=== PATIENT | male | born 1950 | race Caucasian/White ===

== ENCOUNTER 2021-12-12 01:17 | Observation (INO) | payer MEDICARE, OTHER ==
[2021-12-12] MEDS ORDERED: Dexamethasone 4 MG/ML 5 ML MDV IVPUSH ONE (01:18)
[2021-12-12] MEDS ORDERED: Succinylcholine 200 MG/10 ML MDV IV ONE (01:18)
[2021-12-12] MEDS ORDERED: Midazolam 1 MG/ML 2 ML SDV IV ONE (01:18)
[2021-12-12] MEDS ORDERED: Rocuronium 100 MG/10 ML MDV IV ONE (01:18)
[2021-12-12] MEDS ORDERED: Lactated Ringers 1,000 ML IV ONE ×2 (01:18→11:40)
[2021-12-12] MEDS ORDERED: Propofol 200 MG/20 ML SDV IV ONE (01:18)
[2021-12-12] MEDS ORDERED: Ondansetron 4 MG/2 ML SDV IVPUSH ONE ×2 (01:18→01:30)
[2021-12-12] MEDS ORDERED: fentaNYL 100 MCG/2 ML SDV IV ONE (01:18)
[2021-12-12] MEDS ORDERED: Neostigmine Methylsulfate 10 MG/10 ML MDV IVPUSH ONE (01:18)
[2021-12-12] MEDS ORDERED: Glycopyrrolate 0.2 MG/ML 5 ML MDV IV ONE (01:18)
[2021-12-12] MEDS ORDERED: diphenhydrAMINE 50 MG/ML SDV IVPUSH ONE (01:18)
[2021-12-12] MEDS ORDERED: Ketorolac 30 MG/ML SDV IVPUSH ONE (01:30)
[2021-12-12] MEDS ORDERED: Sodium Chloride 0.9% 10 ML Syringe FLUSH PRN (01:34)
[2021-12-12 01:51] LABS: ESTIMATED GFR 81 mL/min (>60)
[2021-12-12] MEDS ORDERED: Iopamidol 755 Mg/ML 100 ML Bottle IV ONE (01:52)
[2021-12-12] MEDS ORDERED: Piperacillin/Tazobactam 4.5 GM in Sodium Chloride 0.9% 100 ML IV ONE (05:00)
[2021-12-12 06:50] LABS: ESTIMATED GFR 81 mL/min (>60)
[2021-12-12] MEDS ORDERED: Ketorolac 30 MG/ML SDV ONE (10:04)
[2021-12-12] MEDS ORDERED: Morphine 2 MG/ML SYRINGE IVPUSH ONE (10:05)
[2021-12-12] MEDS ORDERED: Morphine 2 MG/ML SYRINGE ONE ×2 (10:08→12:02)
[2021-12-12] MEDS ORDERED: Dextrose 5%-Lactated Ringers 1,000 ML IV ONE ×2 (21:00→22:00)
[2021-12-12] MEDS ORDERED: Piperacillin/Tazobactam 3.375 GM in Sodium Chloride 0.9% 100 ML IV ONE ×2 (21:15→22:00)
[2021-12-13] MEDS ORDERED: Piperacillin/Tazobactam 3.375 GM in Sodium Chloride 0.9% 100 ML IV ONE (03:15)
== END 2021-12-13 09:45 | disposition home or self-care (01) ==
LOC: FB.ED 01:17 → FB.ZCENSUS 02:00 → FB.ED 03:15
PROVIDERS: ADMIT Surgery; ATTEND Surgery
DX: K80.10 Calculus of gallbladder with chronic cholecystitis without obstruction (principal); Z98.890 Other specified postprocedural states; Z79.899 Other long term (current) drug therapy
CPT/HCPCS: 36415; 47562; 74177; 76705; 80053; 82150; 83690; 84484; 85025; 88304; 93005; 96374; 96375; 99285; J0330; J1100; J1200; J1885; J2250; J2270; J2405; J2543; J2704; J2710; J3010; J3490; J7120; J7121; Q9967; 00790-QZ